=== PATIENT | female | born 1955 ===

== ENCOUNTER 2023-12-20 07:15 | Inpatient (IN) | payer OTHER ==
[~2023-12-20] VITALS: Ht 160 cm; Wt 78.0 kg
[2023-12-20] MEDS ORDERED: NORVASC (08:16)
[2023-12-20] MEDS ORDERED: STIOLTO RESPIMAT4 G2 (08:16)
[2023-12-20] MEDS ORDERED: SINGULAIR10 MG (08:17)
[2023-12-20] MEDS ORDERED: ANASTROZOLE (08:17)
[2023-12-20 08:18] VITALS: BP 145/69
[2023-12-20 08:28] LABS: PH,URINE 5.5 (5.0-8.0); URINE APPEARANCE Clear; URINE BILIRRUBIN Negative (NEGATIVE); URINE BLOOD Moderate; URINE COLOR Yellow; URINE GLUCOSE Negative (NEGATIVE); URINE KETONE Negative (NEGATIVE); URINE LEUKOCYTE Moderate; URINE NITRATE Negative; URINE PROTEIN Negative (NEGATIVE); URINE UROBILINOGEN 0.2 E.U./dl
[2023-12-20 08:29] LABS: HEMATOCRIT 39.9 % (36.0-45.00); HEMOGLOBIN 13.6 g/dL (12.0-15.00); MEAN CELL VOLUME 85.5 fL (80.00-100.00); MEAN CORPUSCULAR HEMOGLOBIN 29.1 pg (27.00-32.0); PLATELET COUNT 323 K/uL (150-450); RED BLOOD COUNT 4.67 M/uL (4.00-6.00)
[2023-12-20 08:30] LABS: URINE BACTERIA 133.5 uL (0.0-1933); URINE EPITHELIAL CELLS 6.6 uL (0.0-38.8); URINE WBC 132.6 uL (0.0-23.2)
[2023-12-20 08:36] LABS: URINE CAST 0.15 uL (0.0-1.40)
[2023-12-20 08:46] LABS: INR 0.97; PARTIAL THROMBOPLASTIN TIME 27.6 SECONDS (22.0-34.0); PROTHROMBIN TIME 10.6 SECONDS (9.0-11.5)
[2023-12-20 08:58] LABS: ALBUMIN 3.9 gm/dL (3.4-5.0); BILIRUBIN TOTAL 0.44 mg/dL (0.3-1.2); CALCIUM 9.8 mg/dL (8.5-10.1); CREATININE SERUM 1.01 mg/dL (0.55-1.02); GFR 54.35; GLOBULINA 3.7 G/DL (2.4-3.5); POTASSIUM 3.83 mEq/L (3.5-5.1); TOTAL PROTEIN 7.6 gm/dL (6.4-8.2)
[2023-12-26] MEDS ORDERED: BACLOFEN10 MG (08:57)
[2023-12-26] MEDS ORDERED: FLONASE16 GM (08:57)
[2023-12-26] MEDS ORDERED: CETIRIZINE HCL10 MG (08:57)
[2023-12-26] MEDS ORDERED: AMLODIPINE BESYL5 MG (08:57)
[2023-12-26] MEDS ORDERED: BUDESONIDE-FO10.2 G1 (08:57)
[2023-12-26] MEDS ORDERED: CHLORTHALIDONE25 MG (08:58)
[2023-12-26] MEDS ORDERED: ANASTROZOLE1 MG (08:58)
[2023-12-26] MEDS ORDERED: ATORVASTATIN CA40 MG (08:58)
[2023-12-26] MEDS ORDERED: OMEPRAZOLE20 MG (08:58)
[2023-12-26] MEDS ORDERED: DEXAMETHASONE SODIUM PHOSPHATE 4 MG/ML VIAL IV ONE (10:45)
[2023-12-26] MEDS ORDERED: ONDANSETRON HCL 2 MG/ML VIAL IV PRN (12:00)
[2023-12-26] MEDS ORDERED: ENALAPRILAT DIHYDRATE 1.25 MG/ML VIAL IV PRN (12:00)
[2023-12-26] MEDS ORDERED: MORPHINE SULFATE 4 MG/ML VIAL IV ONE ×2 (12:30→13:00)
[2023-12-26] MEDS ORDERED: ENALAPRILAT DIHYDRATE 1.25 MG/ML VIAL IV ONE (13:30)
[2023-12-26] MEDS ORDERED: TRAMADOL HCL 50 MG TABLET PO SCH (17:00)
[2023-12-26] MEDS ORDERED: ACETAMINOPHEN 500 MG GEL..CAP PO SCH (17:00)
[2023-12-26] MEDS ORDERED: CYCLOBENZAPRINE HCL 5 MG TABLET PO SCH (17:00)
[2023-12-26 20:16] VITALS: BP 145/69; O2SAT 94
[2023-12-26] MEDS ORDERED: Calcium Carbonate 1 TAB TABLET PO SCH (21:00)
[2023-12-27 00:55] VITALS: BP 119/80; O2SAT 97
[2023-12-27] MEDS ORDERED: LEVOTHYROXINE SODIUM 125 MCG TABLET PO SCH (06:00)
[2023-12-27 08:00] VITALS: BP 160/78; O2SAT 97
== END 2023-12-27 12:05 | disposition home or self-care (01) | DRG 627 ==
LOC: O/R 12-26 05:10 → SURH 12-26 07:00
PROVIDERS: ADMIT Surgery; ATTEND Surgery
PROC: 0GTK0ZZ Resection of Thyroid Gland, Open Approach (ICD-10-PCS; principal; 2023-12-26 07:00)
DX: E04.2 Nontoxic multinodular goiter (principal); E21.0 Primary hyperparathyroidism; Z20.822 Contact with and (suspected) exposure to COVID-19